=== PATIENT | male | born 1980 | race African-American/Black ===

== ENCOUNTER 2023-03-22 17:59 | Emergency (ER) | payer MEDICAID ==
[~2023-03-22] VITALS: Ht 172.7 cm; Wt 70.0 kg
[2023-03-22 18:02] VITALS: BP 121/76
[2023-03-22 18:05] VITALS: PULSE 106; RESP 18; TEMP 98.3
[2023-03-23] MEDS ORDERED: IBUP-2029 MT (07:14)
== END 2023-03-22 20:23 | disposition home or self-care (01) ==
LOC: ER 17:59
DX: S00.81XA Abrasion of other part of head, initial encounter (principal); M62.48 Contracture of muscle, other site; R42 Dizziness and giddiness; Z88.0 Allergy status to penicillin; X58.XXXA Exposure to other specified factors, initial encounter; Y93.89 Activity, other specified; Y92.89 Other specified places as the place of occurrence of the external cause; Y99.8 Other external cause status
CPT/HCPCS: 70486; 99284

== ENCOUNTER 2023-03-23 01:44 | Emergency (ER) | payer MEDICAID ==
[~2023-03-23] VITALS: Ht 170.2 cm; Wt 81.0 kg
[2023-03-23 01:49] VITALS: O2SAT 100
[2023-03-23] MEDS ORDERED: ACETAMINOPHEN 325MG TABLET PO ONE (05:15)
[2023-03-23] MEDS ORDERED: IBUP-2029 MT (07:14)
[2023-03-23 08:25] VITALS: BP 132/83; PULSE 86; RESP 19; TEMP 98.1
== END 2023-03-23 08:26 | disposition home or self-care (01) ==
LOC: ER 02:17
DX: S70.01XA Contusion of right hip, initial encounter (principal); Z88.0 Allergy status to penicillin; Y08.89XA Assault by other specified means, initial encounter; Y93.89 Activity, other specified; Y92.89 Other specified places as the place of occurrence of the external cause; Y99.8 Other external cause status
CPT/HCPCS: 73502; 99283; Z7610